=== PATIENT | female | born 1945 ===

== ENCOUNTER 2023-08-04 09:28 | Emergency (ER) | payer OTHER, SELFPAY ==
[2023-08-04 09:32] VITALS: BP 162/68
[2023-08-04] MEDS: NORCO 5/325 1 TABLET PO (10:15)
[2023-08-04 12:00] VITALS: BP 119/75
--- NOTE | 2023-08-04 12:14 | ED.GENMED ---
History of Present Illness
General
Chief Complaint: Fall
Source: patient and family
Time Seen by Provider: 08/04/23 09:46
Travel History
Have you had any contact with someone who has COVID-19?: No
Do you have any symptoms of coronavirus? Fever > 100 degrees, chills, cough, shortness of breath, sore throat, loss of taste or smell, muscle aches, or headache?: No
History of Present Illness
History of Present Illness:
78-year-old female who presents after fall. She fell this morning. She states she tripped on the last step and landed on her left flank on the last step. She complains of left-sided pain. She has urinated and denies any hematuria. No shortness
of breath. She does report pain with breathing deeply. No head injury. No neck pain. No back pain. No anticoagulant
Past History
Past History
ED Past Medical History: HTN and Hypercholesterolemia
Phy Exam
Physical Exam
Physical Exam:
CONSTITUTIONAL Patient alert and oriented to person, place and time. Well-appearing. Vital signs reviewed.
HEAD atraumatic, normocephalic.
EYES eyelids normal to inspection, Extraocular muscles intact, Conjunctiva normal, Sclera normal.
NECK normal range of motion, Trachea midline, no jugular venous distention.
RESPIRATORY CHEST No respiratory distress noted, Chest expansion equal, Bilateral breath sounds clear.
CARDIOVASCULAR regular rate and rhythm, Heart sounds normal.
ABDOMEN abdomen nontender, Bowel sounds normal. No distention.
BACK ecchymosis/bruising noted to the left flank area near ribs 8 through 10. No crepitus
UPPER EXTREMITY range of motion normal, Motor strength normal, no cyanosis, no edema.
LOWER EXTREMITY range of motion normal, Motor strength normal, no cyanosis, no edema.
NEURO Speech normal, No focal motor deficits, Tiffanie coma scale 15, Memory normal, Cranial Nerves intact to screening exam.
SKIN skin warm, dry, and normal in color.
PSYCHIATRIC patient oriented to person place and time, Normal affect.
Course
Orders/Labs/Results
Orders:
Orders
08/04/23 10:08
Hydrocodone 5/APAP 325 [Ideal 5/325] 1 tablet PO NOW STA
Ribs, Left 3 View W/PA Chest CR [CR Ribs-left 3 Vw W/pa Chest] Urgent
Comment:
Reason For Exam: fall
Vital Signs
Initial and Last Documented VS:
Initial Vital Signs
Temp Pulse Resp Pulse Ox
99.2 F 71 16 95
08/04/23 09:29 08/04/23 09:29 08/04/23 09:29 08/04/23 09:29
Last Documented Vital Signs
Temp Pulse Resp BP Pulse Ox
99.2 F 71 16 162/68 95
08/04/23 09:29 08/04/23 09:29 08/04/23 09:29 08/04/23 09:32 08/04/23 09:29
MDM/Problems Addressed
MDM/Problems Addressed:
Rib fractures, fall
*Radiology
Radiology exam reviewed: radiology read reviewed
*Pulse Oximetry
Patient hypoxic: no
*Critical Care Note
Total Time (30-74mins, 75-104mins- exclusive of procedures): Not Applicable
Data Reviewed
Source: patient
Further Testing Considered But Not Given:
Consider chest CT but lungs clear, no pneumothorax by films
Update Note
Update Note:
I do feel she is safe for discharge and outpatient follow-up. Feels better with pain meds. Incentive spirometry, pain control and outpatient follow-up
ED Attending Note
-
Portions of this chart may have been created with voice recognition software.� Occasional wrong word or��sound alike� substitutions may have occurred due to the inherent limitations of voice recognition software.
Discharge Plan
Departure
Patient Disposition: Home (Routine Discharge)
Date of Disposition: 08/04/23
Time of Disposition: 12:15
Patient with high blood pressure during this ER visit?: Yes
Discharge Problem:
Multiple rib fractures
Instructions: Rib fractures in adults, BLOOD PRESSURE
Prescriptions:
New
hydrocodone-acetaminophen 5-325 mg tablet
1 tab PO Q6HPRN PRN (Reason: Pain) Qty: 15 0RF
Referrals:
Devi Espitia DO [Family Provider] -
Activity Restrictions/Additional Instructions:
Please use incentive spirometry 10 times per hour while awake. Return immediately for fevers, worsening pain, difficulty breathing or any other concerns. Please see your doctor in the next 3 to 5 days for follow-up and reevaluation.
Interventions
Interventions:
*ED COVID-19 Vaccine History Last Done: 08/04/23 09:29
== END 2023-08-04 12:45 | disposition home or self-care (01) ==
LOC: EMR 09:28
PROVIDERS: EMERGENCY PHYSICIAN Emergency Medicine; FAMILY PHYSICIAN Family Medicine
DX: S22.42XA Multiple fractures of ribs, left side, initial encounter for closed fracture (principal); W10.9XXA Fall (on) (from) unspecified stairs and steps, initial encounter; I10 Essential (primary) hypertension
CPT/HCPCS: 99283; 71101

== ENCOUNTER 2024-08-11 18:09 | Inpatient (IN) | payer OTHER, SELFPAY ==
[2024-08-11] VITALS (8 sets, daily range): BP systolic 110–149; BP diastolic 53–76; BMI 28.4
[2024-08-11 14:34] LABS: % Basophils 0.4 % (0-2); % Eosinophils 0.1 % (0-6); % Immature Granulocytes 0.4 % (0-0.5); % Lymphocytes 13.1 % (20.5-51.1); % Monocytes 5.9 % (1.7-9.3); % Neutrophils 80.1 % (42.2-75.2); Absolute Basophils 0.1 10^3/uL (0-0.2); Absolute Immature Granulocytes 0.1 10^3/uL (0-0.05); Absolute Lymphocytes 1.8 10^3/uL (1.2-3.4); Absolute Monocytes 0.8 10^3/uL (0.1-0.6); Absolute Neutrophils 10.8 10^3/uL (1.4-6.5); Hematocrit 33.9 % (37.0-47.0); Mean Corp Hgb Conc. 32.4 g/dL (33.0-37.0); Mean Corpuscular Hgb 26.9 pg (27.0-31.0); Mean Corpuscular Volume 82.9 fL (81.0-99.0); Mean Platelet Volume 10.9 fL (7.4-10.4); Nucleated Red Blood Cells % 0 %; Platelet Count 268 10^3/uL (130-400); Red Blood Cell Count 4.09 10^6/uL (4.20-5.40); Red Cell Dist. Width 14.6 % (11.5-14.5); White Blood Cell Count 13.5 10^3/uL (4.8-10.8)
[2024-08-11 14:38] LABS: INR 1.14; PT 14.9 Sec (11.4-14.6)
--- NOTE | 2024-08-11 15:02 | ED.GENMED ---
History of Present Illness
General
Chief Complaint: Chest Pain
Source: patient
Exam Limitations: none
Time Seen by Provider: 08/11/24 14:32
History of Present Illness
History of Present Illness:
79yoF with a history of coronary artery disease s/p CABG x2 in 2022, hypertension, and hyperlipidemia presenting with her daughter for evaluation of shortness of breath. Patient started to have chills last night without any associated fever or body
aches. She was standing this morning and she started to feel lightheaded and clammy. Patient was experience a discomfort in her right chest and felt short of breath. She sat down and symptoms seem to improve but upon standing, she again did not
feel well. Patient has been having exertional dyspnea and right sided chest discomfort throughout the day today. She denies any syncope. EKG on arrival shows atrial fibrillation. She has no history of afib other than in the immediate
postoperative period after her CABG. She currently takes 325mg aspirin daily, no other blood thinners.
Past History
Past History
ED Past Medical History: HTN and Hypercholesterolemia
Phy Exam
General Physical Exam
General Presentation: well appearing and no apparent distress
General age: appears stated age
General Skin: warm and dry
General Habitus: normal
General Mental: alert
ENT Exam
ENT Exam: normocephalic
Cardiovascular Exam
Cardiovascular Exam: no edema and irregularly irregular
Pulmonary Exam
Pulmonary Exam: lungs clear, no respiratory distress, no rales, no crackles, no rhonchi and no wheezing
Neurological Exam
Neurological Exam: alert
Tiffanie Coma Scale
Eye Opening: Spontaneous
Verbal Response: Oriented
Motor Response: Obeys Commands
GCS Total Score: 15
Skin Exam
Skin Exam: normal color and warm/dry
Psychiatric Exam
Psychiatric Exam: normal mood/affect
Scores
Heart Score for Chest Pain Patients
STEMI patient?: No
History: Moderately Suspicious
ECG: Significant ST-Depression
Age: >/= 65 years
Risk Factors: >/= 3 Risk Factors or History of CAD
Troponin: >1 - <3 x Normal Limit
Heart Score for Chest Pain Patients: 8
Heart Score Risk: 72.7 % MACE over next 6 weeks
Course
Orders/Labs/Results
Orders:
Orders
08/11/24 13:57
Electrocardiogram (*1) Urgent
Reason for Study: Chest Pain
EKG- Treatment ONCE
08/11/24 14:20
Complete Blood Count/With Diff Urgent
NT-proBNP Urgent
Comment: ADDON
Prothrombin Time Urgent
Troponin I Urgent
08/11/24 14:33
Add On- LAB Urgent
Tests Added?: TSH, magnesium
08/11/24 14:52
Add On- LAB Urgent
Tests Added?: BNP
Cardiac Monitoring- Treatment ONCE
0.9% Sodium Chloride 500 ml [Nss] 500 ml IV BOLUS
Metoprolol [Lopressor] 5 mg IV NOW STA
08/11/24 14:55
CR Chest - 2 Views Urgent
Comment:
Reason For Exam: SOB
08/11/24 15:06
COVID-19 Antigen Urgent
Source: Nasal Swab
Comprehensive Metabolic Panel Urgent
D-Dimer Urgent
Magnesium Urgent
PTT Urgent
Comment: ADD ON
TSH Urgent
Influenza A+B Rapid Molecular Urgent
SANDRINE Source: Nasal Swab
Specimen Description:
08/11/24 15:42
Potassium Chloride [KCl] 40 meq PO NOW STA
08/11/24 15:52
Heparin 4,000 units IV NOW STA
Nursing to Place Non Medication Order As Directed
Physician Order: PTT 6 hours after initial start of Heparin infusion
Above order entered?: Yes
Venous Doppler Lwr Ext Bilat [US Periph Venous LOWER Ext Toni] Urgent
Comment:
Reason For Exam: elevated D-dimer
08/11/24 15:59
Add On- LAB Urgent
Tests Added?: ptt
08/11/24 16:00
Heparin 95640 Units/250 ml 25,000 units in 250 ml IV PER PROTOCOL
Weight to be used for heparin protocol in kilograms (kg):: 70.3
Protocol:: Cardiac Tx/Acute Coronary
PTT Goal Range to be used:: PTT 73 to 111 seconds
Order type:: Initial
INITIAL Infusion Dose (UNITS/KG/hr) & then follow protocol:: 12 units/kg/hr
Infusion Dose in UNITS/hr & then follow protocol (UNITS/hr):: 850
INFUSION RATE in mL/hr & then follow protocol (mL/hr):: 8.5
PTT less than or equal to 64 seconds:: Increase rate by 200 units/hr (+ 2 mL/hr)
PTT 64.1 to 72.9 seconds:: Increase rate by 100 units/hr (+ 1 mL/hr)
PTT 73 to 111 seconds:: Target Range. No change in rate.
PTT 111.1 to 130.9 seconds:: Decrease rate by 100 units/hr (- 1 mL/hr)
PTT 131 to 199.9 seconds:: HOLD for 1 hr. Then decrease rate by 200 units/hr (- 2 mL/hr)
PTT greater than or equal to 200 seconds:: HOLD for 2 hrs & Notify Provider. Then decrease by 200 units/hr (-
2 mL/hr)
Lab follow-up:: Each change, PTT q6h until 2 consecutive are therapeutic. Then PTT
daily.
08/11/24 16:54
Urinalysis Reflex To Culture Urgent
Date Specimen was Collected: 08/11/24
Time Specimen was Collected: 16:59
08/11/24 17:01
Add On- LAB Stat
Tests Added?: Mg
08/11/24 22:15
PTT Urgent
Abnormal Lab Results
08/11/24 08/11/24
14:20 15:06
WBC 13.5 H 10^3/uL
(4.8-10.8)
RBC 4.09 L 10^6/uL
(4.20-5.40)
Hgb 11.0 L g/dL
(12.0-16.0)
Hct 33.9 L %
(37.0-47.0)
MCH 26.9 L pg
(27.0-31.0)
MCHC 32.4 L g/dL
(33.0-37.0)
RDW 14.6 H %
(11.5-14.5)
MPV 10.9 H fL
(7.4-10.4)
Abs Immat Gran (auto) 0.1 H 10^3/uL
(0-0.05)
Absolute Neuts (auto) 10.8 H 10^3/uL
(1.4-6.5)
Absolute Monos (auto) 0.8 H 10^3/uL
(0.1-0.6)
Neutrophils % 80.1 H %
(42.2-75.2)
Lymphocytes % 13.1 L %
(20.5-51.1)
PT 14.9 H Sec
(11.4-14.6)
D-Dimer 1.04 H ug/mlFEU
(0.00-0.50)
Sodium 131 L mmol/L
(135-145)
Potassium 3.2 L mmol/L
(3.5-5.1)
Chloride 90 L mmol/L
(98-107)
BUN 48 H mg/dl
(7-17)
Creatinine 2.1 H mg/dL
(0.6-1.0)
Glucose 255 H mg/dl
(70-99)
Troponin I 0.113 H* ng/ml
08/11/24 14:20
08/11/24 15:06
Vital Signs
Initial and Last Documented VS:
Initial Vital Signs
Temp Pulse Resp BP Pulse Ox
97.6 F 67 16 117/65 95
08/11/24 14:01 08/11/24 14:01 08/11/24 14:01 08/11/24 14:01 08/11/24 14:01
Last Documented Vital Signs
Temp Pulse Resp BP Pulse Ox
97.6 F 123 21 134/64 94
08/11/24 14:01 08/11/24 16:15 08/11/24 16:15 08/11/24 16:00 08/11/24 16:15
MDM/Problems Addressed
Differential Diagnosis Includes:
79yoF here with exertional dyspnea, R sided chest discomfort since this morning. Also had some lightheadedness/clamminess this morning. Hx of CAD s/p CABG. EKG from triage shows rapid afib with HR of [address] changes in inferolateral
leads. BP stable. Patient is well-appearing on initial exam in no distress. She currently is asymptomatic while sitting on the stretcher. Differential diagnosis includes but is not limited to: Arrhythmia, ACS, PE, electrolyte abnormality, thyroid
dysfunction
Initial ED plan: Check cardiac labs, D-dimer, TSH, magnesium, COVID/flu swab, and chest x-ray. IV fluid bolus. IV metoprolol initially ordered for rate control although heart rate came down to the 80s without intervention.
*EKG
Interpreted by ED Provider?: Yes
EKG Intrepretation Date: 08/11/24
Heart Rate: 135
Rate: tachycardiac
Rhythm: a-fib
Webb: normal axis
Ischemia: non-specific ST changes (inferolateral leads)
*Critical Care Note
Total Time (30-74mins, 75-104mins- exclusive of procedures): Not Applicable
Update Note
Update Note:
Labs reveal a troponin of 0.113. BNP 4700. D-dimer elevated at 1.04. Creatinine is 2.1 with a GFR of 23. Daughter was able to show me her last outpatient lab work from March 2024 and creatinine was 1.55 at that time. Overall low clinical
suspicion for PE. Bilateral venous duplexes were ordered and patient was initiated on a heparin drip. Patient admitted for further evaluation and management.
ED Attending Note
-
Portions of this chart may have been created with voice recognition software.� Occasional wrong word or��sound alike� substitutions may have occurred due to the inherent limitations of voice recognition software.
Discharge Plan
Departure
Patient Disposition: Admit
Date of Disposition: 08/11/24
Time of Disposition: 16:17
Presentation/result/management discussed w/ accepting MD/DO: Hospitalist
Discharge Problem:
New onset atrial fibrillation, Elevated troponin, Acute kidney injury
Prescriptions:
No Action
losartan 50 mg Tablet
50 mg PO DAILY
furosemide [Lasix] 40 mg Tablet
40 mg PO DAILY
atorvastatin [Lipitor] 40 mg Tablet
40 mg PO QPM
aspirin 325 mg Tablet
325 mg PO DAILY
metoprolol succinate [Toprol XL] 50 mg Tablet Extended Release 24 Hr
50 mg PO DAILY
Theragen Tablet
1 tab PO DAILY
amlodipine [Norvasc] 5 mg Tablet
5 mg PO BID
allopurinol 100 mg Tablet
100 mg PO DAILY
ferrous sulfate 325 mg (65 mg iron) Tablet
325 mg PO Q48H
ibuprofen [Advil] 200 mg Tablet
200 mg PO Q6HPRN PRN (Reason: mild pain)
docusate sodium [Colace] 100 mg Capsule
100 mg PO Q48H
metformin 500 mg Tablet Extended Release 24 Hr
1,000 mg PO BID
escitalopram oxalate [Lexapro] 10 mg Tablet
10 mg PO DAILY
ezetimibe [Zetia] 10 mg Tablet
10 mg PO DAILY
Referrals:
Devi Espitia DO [Family Provider] -
Interventions
Interventions:
*Risk Screen - Suicide Last Done: 08/11/24 14:05
*General Assessment Last Done: 08/11/24 14:18
*Neglect/Abuse Screening Last Done: 08/11/24 14:05
*ED COVID-19 Vaccine History Last Done: 08/11/24 14:18
ED- Cardiac Assessment Last Done: 08/11/24 14:18
Discharge Date and Time
Print Language: GUYANESE
[2024-08-11 15:04] LABS: Troponin I 0.113 ng/ml
[2024-08-11] MEDS: NSS 500 IV (15:06)
[2024-08-11 15:20] LABS: NT-proBNP 4700 pg/ml
[2024-08-11 15:35] LABS: D-Dimer 1.04 ug/mlFEU (0.00-0.50)
[2024-08-11 15:40] LABS: ALT (SGPT) 16 U/L (0-35); AST (SGOT) 25 U/L (14-36); Albumin 4.4 g/dl (3.5-5.0); Alkaline Phosphatase 82 U/L (38-126); Blood Urea Nitrogen 48 mg/dl (7-17); COVID-19 Antigen Negative (Negative); Calcium 9.1 mg/dl (8.4-10.2); Carbon Dioxide 24 mmol/L (22-30); Chloride 90 mmol/L (98-107); Estimated Creatinine Clearance 20 ml/min; Glucose 255 mg/dl (70-99); Magnesium 1.6 mg/dl (1.6-2.3); Potassium 3.2 mmol/L (3.5-5.1); Sodium 131 mmol/L (135-145); Total Bilirubin 1.3 mg/dl (0.2-1.3); Total Protein 7.3 g/dl (6.3-8.2); eGFR 23.38
[2024-08-11 16:09] LABS: TSH 1.73 uIU/ml (0.47-4.68)
[2024-08-11] MEDS: KCL 40 MEQ PO (16:14)
[2024-08-11] MEDS: HEPARIN 25000 UNITS/250 ML IV (16:15)
[2024-08-11] MEDS: HEPARIN 4000 UNITS IV (16:15)
[2024-08-11 16:29] LABS: APTT 30.4 Sec (23.4-35.0)
--- NOTE | 2024-08-11 16:33 | W.PN.UPDATE ---
Update Note
Progress Note Update
I personally performed a history and physical exam of the patient and discussed management with the resident. I reviewed the resident's note and agree with the documented findings and plan of care HPI/CC.
79-year-old female who presents with chief complaints of dyspnea on exertion and right-sided chest pain.
134/64, 123, 21, 97.6 �F, 94% RA
Gen: NAD, AAOx3.
Eyes: EOMI, PERRLA, no scleral icterus.
Neck: supple.
CV: irreg/irreg, +S1/S2, no m/r/g.
Resp: CTAB, no rales, wheezes, or rhonchi.
Abd: +BS, soft, NT, ND
Skin: No rashes.
Neuro: CN 2-12 intact, non-focal.
Psych: Normal mood and affect.
Lab Results
08/11/24 08/11/24 08/11/24
14:20 15:06 15:52
WBC 13.5 H
RBC 4.09 L
Hgb 11.0 L
Hct 33.9 L
MCV 82.9
MCH 26.9 L
MCHC 32.4 L
RDW 14.6 H
Plt Count 268
MPV 10.9 H
Abs Immat Gran (auto) 0.1 H
Absolute Neuts (auto) 10.8 H
Absolute Lymphs (auto) 1.8
Absolute Monos (auto) 0.8 H
Absolute Eos (auto) 0.0
Absolute Basos (auto) 0.1
Immature Gran % 0.4
Neutrophils % 80.1 H
Lymphocytes % 13.1 L
Monocytes % 5.9
Eosinophils % 0.1
Basophils % 0.4
Nucleated RBC % 0
PT 14.9 H
INR 1.14
APTT Cancelled
D-Dimer 1.04 H
Sodium Cancelled 131 L
Potassium Cancelled 3.2 L
Chloride Cancelled 90 L
Carbon Dioxide Cancelled 24
BUN Cancelled 48 H
Creatinine Cancelled 2.1 H
Estimated Creat Clear Cancelled 20
eGFR Cancelled 23.38
Glucose Cancelled 255 H
Calcium Cancelled 9.1
Magnesium 1.6
Total Bilirubin Cancelled 1.3
AST Cancelled 25
ALT Cancelled 16
Alkaline Phosphatase Cancelled 82
Troponin I 0.113 H*
Dry-M-Twrasba[place]ja Pept 4700
Total Protein Cancelled 7.3
Albumin Cancelled 4.4
TSH 1.73
SARS-CoV-2 Antigen Negative
CXR: Hyperaeration suggests a component of COPD.
ECG (read by me): afib @ 135, nl axis, no acute ST changes, TWi I, II, V5-V6
Afib with RVR:
-relatively new Dx (had afib in 2022 sergio-CABG)
-5mg IV Lopressor, 500cc NS given in ER
-cont heparin gtt started in the ER
-check echo
-c/s cards
-cont Toprol XL
-aggressive IVFs with TESS
-IV cardizem PRN for now. Rehydrate prior to considering cardizem gtt.
Elevated trop:
-h/o CAD s/p CABG
-ECG with TWi as above
-trend trop
-heparin gtt started in ER, continue
-currently elevated troponin is either due to acute nonischemic myocardial injury (in the setting of TESS) or acute NSTEMI. Will need to trend trop and symptoms to delineate further.
TESS:
-baseline Cr 1.5 in March 2024
-likely prerenal azotemia as well as SEs of ARB/NSAIDs
-hold ARB
-aggressive IVFs
Other problems:
DM2: Hold metformin, check a1c, SSI/accuchecks
Essential HTN: hold Norvasc/Losartan
HLD: cont statin
Hyponatremia, mild
Hypokalemia: 40meq PO K
FULL/heparin gtt
[2024-08-11 17:30] LABS: Urine Albumin Negative (Neg - Trace); Urine Bilirubin Negative (Negative); Urine Character Clear (Clear); Urine Color Yellow; Urine Glucose Negative (Negative); Urine Ketone Negative (Negative); Urine Leukocyte Negative (Negative); Urine Nitrite Negative (Negative); Urine Occult Blood Negative (Negative); Urine Urobilinogen Negative (Neg - 1+)
--- NOTE | 2024-08-11 17:30 | HPS.HSE ---
Family Physician
-
Family Physician: Devi Espitia
Chief Complaint
-
SOB, right-sided chest discomfort, lightheadedness
History of Present Illness
Patient is a 79-year-old female with past medical history of hypertension, HLD, avq-ybhvzdv-bcnwnbifs diabetes type 2, CAD status post CABG 2022, who presented to ED for evaluation of shortness of breath and right-sided chest discomfort. Daughter
is at bedside. History is obtained from both patient and daughter.
Patient had an episode of diarrhea on Saturday night. Was also having chills, however, symptoms resolved without any treatment the following day. Patient was symptom-free until last night when she started having chills and feeling clammy again.
This morning, while in the shower, she experienced right-sided chest comfort as well as shortness of breath and headedness. Mentions pain lasted for almost 30 minutes. Did not radiate. She got out of the shower. Did not take any medications to
help with symptoms and just went to bed to rest. After waking up, she still had exertional shortness of breath and chest discomfort. Mentions discomfort was different to the [place] episode she had in 2022.
Denies any recent travels or surgeries. Denies personal history of blood clots. Denies noticing swelling of legs. Patient is employed and has an active lifestyle.
On arrival in the ED, EKG was obtained which showed A-fib rhythm with RVR. Also, troponin and creatinine were elevated. Mildly hyponatremic and hypokalemic.
Medical History
Past Medical History
Past Medical History: Reports CAD (s/p CABG 2022), HTN, Hypercholesterolemia, NIDDM and Renal Failure
Past Surgical History: Reports Cardiac
Additional Past Surgical History:
CABG
Social History
Tobacco: Former Smoker
Alcohol: Occasional
Drug: None
Employment: Employed
Family History
Family History: Not pertinent
Allergies / Home Medications
Allergies reflects when Allergies were last updated in [email or web address].
Home Medications with original date entered in [email or web address]
Allergy/Medication List:
Allergies
Allergy/AdvReac Type Severity Reaction Status Date / Time
adhesive Allergy Rash Verified 08/04/23 09:31
cephalexin [From Keflex] Allergy Nausea / Verified 08/04/23 09:31
Vomiting
Penicillins Allergy Tongue Verified 08/04/23 09:31
Swelling
Home Medications
allopurinol 100 mg tablet 100 mg PO DAILY 08/11/24
amlodipine 5 mg tablet (Norvasc) 5 mg PO BID 08/11/24
aspirin 325 mg tablet 325 mg PO DAILY 08/11/24
atorvastatin 40 mg tablet (Lipitor) 40 mg PO QPM 08/11/24
docusate sodium 100 mg capsule (Colace) 100 mg PO Q48H 08/11/24
escitalopram oxalate 10 mg tablet (Lexapro) 10 mg PO DAILY 08/11/24
ezetimibe 10 mg tablet (Zetia) 10 mg PO DAILY 08/11/24
ferrous sulfate 325 mg (65 mg iron) tablet 325 mg PO Q48H 08/11/24
furosemide 40 mg tablet (Lasix) 40 mg PO DAILY 08/11/24
ibuprofen 200 mg tablet (Advil) 200 mg PO Q6HPRN PRN mild pain 08/11/24
losartan 50 mg tablet 50 mg PO DAILY 08/11/24
metformin 500 mg tablet,extended release 24 hr 1,000 mg PO BID 08/11/24
metoprolol succinate 50 mg tablet,extended release 24 hr (Toprol XL) 50 mg PO DAILY 08/11/24
therapeutic multivitamin 1 tab PO DAILY 08/11/24
Review of Systems
-
History Source: Patient
A 12 point ROS was completed and negative except as noted: Yes
Respiratory: Denies Trouble Breathing
Cardiac: Denies Chest Pain, Diaphoresis, Palpitations or Syncope
Abdomen/GI: Denies Abdominal Pain, Nausea, Vomiting or Diarrhea
Musculoskeletal: Denies Edema
Neurological: Denies Dizzy or Headache
Physical Exam
Vital Signs
Vital Signs
Temp Pulse Resp BP Pulse Ox
97.6 F 123 21 134/64 94
08/11/24 14:01 08/11/24 16:15 08/11/24 16:15 08/11/24 16:00 08/11/24 16:15
Physical Exam
General: Well Developed, Well Nourished, No Apparent Distress, Comfortable and Conversant
HEENT: NormoCephalic, Anicteric and Moist mucous membranes
Respiratory: Clear and Non Labored Respirations; No Wheezes or Crackles
Cardiac: S1/S2 and Irregular Rhythm; No Bradycardia or Tachycardia
GI: Soft, Non Tender, Non Distended and Normal Bowel Sounds
Musculoskeletal: No Clubbing, No Cyanosis and No Edema
Skin: Warm and Dry; No Rash
Neuro: Awake, Alert, Oriented and AO x 3
Psych: Calm
Laboratory Results
-
08/11/24 14:20
08/11/24 15:06
Laboratory Results
PT 14.9 Sec (11.4-14.6) H 08/11/24 14:20
INR 1.14 08/11/24 14:20
APTT Cancelled 08/11/24 15:52
Total Bilirubin 1.3 mg/dl (0.2-1.3) 08/11/24 15:06
AST 25 U/L (14-36) 08/11/24 15:06
ALT 16 U/L (0-35) 08/11/24 15:06
Alkaline Phosphatase 82 U/L (38-126) 08/11/24 15:06
Troponin I 0.113 ng/ml H* 08/11/24 14:20
Impression/Plan
-
#Afib with RVR:
-Relatively new Dx (had afib in 2022 sergio-CABG, was controlled prior to discharge)
-5mg IV Lopressor and 500cc NS given in ER
-Cont heparin gtt started in the ER
-Check echo
-Consulted cards
-Cont Toprol XL
-IV cardizem PRN for now. Rehydrate prior to considering cardizem gtt.
#Elevated troponin
-CAD s/p CABG 2022-She follows with a sole stitcher hand at [facility].
-likely d/t acute NIMI (in the setting of TESS) or acute NSTEMI.
-Will cont to trend trop to peak
-serial ECG
-heparin gtt started in ER, will continue
-LE US: no evidence of DVT
-CXR: Hyperaeration suggests a component of COPD.
#TESS on CKD
-baseline Cr 1.5 in March 2024 with eGFR 34
-likely prerenal as well as SEs of ARB/NSAIDs
-Hold ARB and Lasix
-Aggressive IVFs
#NIDDM
-Hold metformin
-Check HgbA1C
-SSI low
-Accuchecks
#Essential HTN
-Hold Norvasc and Losartan
-Cont Toprol XL
#HLD
-Continue statin
#Mild Hypovolemic Hyponatremia
- Anticipate to improve with NSS
- Trend BMP
#Hypokalemia
-Repleted with 40meq PO K in ED
DVT prophylaxis
Heparin gtt
CODE STATUS
FULL CODE
[2024-08-11 20:24] LABS: Troponin I 0.094 ng/ml
[2024-08-11 21:45] LABS: Glucose - Point of Care 152 mg/dl (70-99)
[2024-08-11] MEDS: LIPITOR 40 MG PO (21:52)
[2024-08-11 22:27] LABS: APTT 68.7 Sec (23.4-35.0)
[2024-08-11 22:38] LABS: Troponin I 0.093 ng/ml
[2024-08-11] MEDS: MELATONIN 3 MG PO (23:10)
[2024-08-12 00:57] VITALS: BMI 26.5
[2024-08-12 06:00] VITALS: BMI 25.6
[2024-08-12 06:03] LABS: Hematocrit 25.4 % (37.0-47.0); Hemoglobin 8.8 g/dL (12.0-16.0); Mean Corp Hgb Conc. 34.6 g/dL (33.0-37.0); Mean Corpuscular Hgb 27.5 pg (27.0-31.0); Mean Corpuscular Volume 79.4 fL (81.0-99.0); Mean Platelet Volume 10.7 fL (7.4-10.4); Platelet Count 225 10^3/uL (130-400); Red Cell Dist. Width 14.4 % (11.5-14.5); White Blood Cell Count 10.5 10^3/uL (4.8-10.8)
[2024-08-12 06:05] LABS: APTT 76.9 Sec (23.4-35.0)
[2024-08-12 06:28] LABS: ALT (SGPT) 13 U/L (0-35); AST (SGOT) 22 U/L (14-36); Albumin 3.5 g/dl (3.5-5.0); Alkaline Phosphatase 81 U/L (38-126); Blood Urea Nitrogen 46 mg/dl (7-17); Calcium 8.9 mg/dl (8.4-10.2); Carbon Dioxide 28 mmol/L (22-30); Chloride 95 mmol/L (98-107); Estimated Creatinine Clearance 20 ml/min; Glucose 158 mg/dl (70-99); Sodium 135 mmol/L (135-145); Total Protein 6.3 g/dl (6.3-8.2); eGFR 26.36
--- NOTE | 2024-08-12 07:27 | PTCARENOTE ---
Patient received from ED on stretcher. Patient on Heparin gtt at 8.5 ml/hr. Heart rate controlled, A.fib. rhythm on monitor. Patient remains asymptomatic. Call dodge with in reach. POC reviewed with patient. Care ongoing, Will continue to monitor.
[2024-08-12 07:41] VITALS: BP 116/56
--- NOTE | 2024-08-12 07:44 | W.PN.HOSP.TC ---
Today's Communication/Plan
-
Echo
Cardiology consult
Replete potassium
Fluid therapy
Trend BMP, I/O, daily weights
Assessment / Plan
Assessment / Plan
Patient is a 79-year-old female with past medical history of hypertension, HLD, moi-htmdkxs-fwvrhzfgm diabetes type 2, CAD status post CABG 2022, who presented to ED for evaluation of shortness of breath and right-sided chest discomfort.
#Afib with RVR:
-Relatively new Dx (had afib in 2022 sergio-CABG, was controlled prior to discharge)
-In and out of A-fib overnight. NSR this a.m.
-Cont heparin gtt for now-can transition to Eliquis later in the day
-Consulted cardiology
-Echo to be done this a.m.
-Continue Toprol XL
-IV cardizem PRN
#Elevated troponin
-CAD s/p CABG 2022-She follows with a inspector publications at [facility].
-likely d/t acute NIMI (in the setting of TESS) or acute NSTEMI.
-Will cont to trend troponin to peak
-serial ECG
-Cont heparin gtt
-LE US: no evidence of DVT
-CXR: Hyperaeration suggests a component of COPD (patient is former smoker)
#TESS on CKD
-Downtrending
-baseline Cr 1.5 in March 2024 with eGFR 34
-likely prerenal as well as SEs of ARB/NSAIDs
-Continue to hold ARB and Lasix
-IVF therapy with normal saline
#NIDDM
-Hold metformin
-Check HgbA1C
-SSI low
-Accuchecks
#Essential HTN
-Hold Norvasc and Losartan
-Cont Toprol XL
#HLD
-Continue statin
#Mild Hypovolemic Hyponatremia
- Resolved
- Trend BMP
#Hypokalemia
-Repleted with 40meq PO K
DVT prophylaxis
Heparin gtt
CODE STATUS
FULL CODE
Anticipated Discharge: Within 24 hours
Subjective/Interval History
-
Date of Service: August 12, 2024
Denies any CP, SOB or lightheadedness.
Objective Data
-
Labs:
Laboratory Results
08/11/24 08/12/24 08/12/24
22:05 05:24 11:30
WBC 10.5
Hgb 8.8 L
Hct 25.4 L
Plt Count 225
APTT 68.7 H 76.9 H Pending
Sodium 135
Potassium 3.0 L
Chloride 95 L
Carbon Dioxide 28
BUN 46 H
Creatinine 1.9 H
Glucose 158 H
Calcium 8.9
Total Bilirubin 1.0
AST 22
ALT 13
Alkaline Phosphatase 81
Vital Signs:
Vital Signs
Temp Pulse Resp BP Pulse Ox
97.9 F 65 16 116/56 97
08/12/24 07:41 08/12/24 07:41 08/12/24 07:41 08/12/24 07:41 08/12/24 07:41
I&O
08/11/24 08/12/24 08/13/24
06:59 06:59 06:59
Intake Total 480 / 480
Balance 480 / 480
Review of Systems
-
History Source: Patient
All other systems: Reviewed and negative
Physical Exam
-
General: Well Developed and No Apparent Distress
HEENT: Normocephalic, Atraumatic and Moist Mucous Membranes
Respiratory: Clear to Auscultation
Cardiac: S1/S2; Negative Murmur, Rub or Gallop
GI: Soft, Nontender, Nondistended and Normal Bowel Sounds
Musculoskeletal: No Clubbing, No Cyanosis and No Edema
Neuro: Awake, Alert, Oriented, AO x 3 and Slurred Speech
Psych: Calm
[2024-08-12 08:31] LABS: Glycohemoglobin (HgbA1c) 8.7 % (4.0-5.6)
[2024-08-12] MEDS: ASPIRIN 325 MG PO (08:58)
[2024-08-12] MEDS: THERAGRAN 1 TABLET PO (08:58)
[2024-08-12] MEDS: ZYLOPRIM 100 MG PO (08:58)
[2024-08-12] MEDS: KCL 40 MEQ PO ×2 (08:58→12:47)
[2024-08-12] MEDS: NOVOLOG FLEXPEN-LOW RESISTANCE 2 UNITS SC ×2 (08:59→12:45)
[2024-08-12] MEDS: COLACE 100 MG PO (08:59)
[2024-08-12] MEDS: FEOSOL 325 MG PO (08:59)
[2024-08-12] MEDS: LEXAPRO 10 MG PO (08:59)
[2024-08-12] MEDS: TOPROL XL 50 MG PO ×2 (08:59→21:27)
[2024-08-12] MEDS: ZETIA 10 MG PO (08:59)
[2024-08-12 09:03] LABS: Glucose - Point of Care 214 mg/dl (70-99)
--- NOTE | 2024-08-12 09:45 | PTOTSP ---
Chart reviewed, spoke with nurse. Therapist spoke with the patient, who reports being independent and has had no changes in her strength or balance since admission. Patient is agreeable to PT signing off and is aware our services are available if
needed. Will sign off at this time.
--- NOTE | 2024-08-12 10:09 | W.PN.UPDATE ---
Update Note
Progress Note Update
I personally performed a history and physical exam of the patient and discussed management with the resident. I reviewed the resident's note and agree with the documented findings and plan of care HPI/CC.
Gen: NAD, AAOx3.
Eyes: EOMI, PERRLA, no scleral icterus.
Neck: supple.
CV: remains irreg/irreg, +S1/S2, no m/r/g.
Resp: remains CTAB, no rales, wheezes, or rhonchi.
Skin: No rashes. No edema.
Neuro: CN 2-12 intact, non-focal.
Psych: Normal mood and affect.
CXR: Hyperaeration suggests a component of COPD.
ECG (read by me): afib @ 135, nl axis, no acute ST changes, TWi I, II, V5-V6
Echo: EF 55-60%. No RWMA. Small PFO. No change compared to prior echocardiogram in 2021.
Afib with RVR:
-relatively new Dx (had afib in 2022 sergio-CABG)
-5mg IV Lopressor, 500cc NS given in ER
-cont heparin gtt
-echo above
-c/s cards
-cont Toprol XL
-aggressive IVFs with TESS
Elevated trop:
-h/o CAD s/p CABG
-ECG with TWi as above
-currently on heparin gtt
-trops minimally elevated and flat
-elevated troponin is acute nonischemic myocardial injury (in the setting of TESS)
TESS:
-baseline Cr 1.5 in March 2024
-likely prerenal azotemia as well as SEs of ARB/NSAIDs
-holding ARB
-cont IVFs
Other problems:
Hypokalemia: PO K
DM2: a1c 8.7%, Holding metformin, SSI/accuchecks
Essential HTN: hold Norvasc/Losartan
HLD: cont statin
Hyponatremia, mild
FULL/heparin gtt
[2024-08-12] MEDS: MAGNESIUM SULFATE 50 IV (10:39)
[2024-08-12] MEDS: NSS 1000 IV (10:39)
[2024-08-12 11:34] VITALS: BP 117/87
[2024-08-12 11:52] LABS: Glucose - Point of Care 219 mg/dl (70-99)
[2024-08-12 11:55] LABS: APTT 62.7 Sec (23.4-35.0)
--- NOTE | 2024-08-12 12:14 | CON.CAR ---
Addendum entered and electronically signed by Ko Landin MD 08/12/24 16:29:
Stable cardiac status
We will sign off, please recall as needed
Addendum entered and electronically signed by Ko Landin MD 08/12/24 16:27:
I saw and examined the patient.
The Sign Shop Supervisor's note was reviewed and I agree with the note.
Comment: Briefly, 79-year-old woman with past medical history of CAD status post CABG complicated by postop A-fib who presented with chest discomfort and was found to be in atrial fibrillation with rapid ventricular response.
Patient spontaneously converted and is currently maintaining sinus rhythm.
Echo here with preserved LV function and no high-grade valve disease
Plan to increase home Toprol as rates were rapid in A-fib. Will need to monitor for bradycardia. Patient is wearing an Apple Watch and we discussed monitoring heart rate going forward.
Start Eliquis
Recommend stopping aspirin
Tells me she is already scheduled to see her outpatient corporation pilot next week and they can discuss additional medication titrations at that time
Original Note:
Consultation
Consultation Request
Date/Time Consultation Requested: 08/11/24 at 1723
Date/Time Consultation Performed: 08/12/24 at 1144
Requesting Provider: Dr. Bahena
Performing Provider: Dr. Landin
Reason for Consultation: Afib, elevated Troponin
Medical History
-
History of Present Illness:
Patient came to ER yesterday with symptoms of chills and right-sided chest pressure and was admitted with recurrence of A-fib with RVR. Patient previously followed with [facility] cardiology, but when she was found to have CAD she started
following with a corporation pilot down at [place] and eventually had CABG 06/2022. Patient reports she had postop A-fib that was self-limited and she was not started on OAC. No documented recurrence of A-fib. Patient is due to see her primary
corporation pilot next week and last saw him a year ago. She came in from work Saturday night with chills, but no fever. While getting ready for work yesterday she felt uneasy and had a pressure on the right side of her chest and came to ER. Patient
was found to be in A-fib with RVR. Patient converted spontaneously to sinus rhythm overnight. Patient was started on a heparin drip. This is her first documented recurrence of A-fib since CABG. She remains in SR now and her symptoms have
improved. Her right sided chest pressure is completely different from her ACS symptoms back in 2022 which was a left-sided pain.
PMH:
Paroxysmal Afib
seen at time of CABG 06/2022, first documented recurrence
CAD s/p CABG at [place] 06/2022
Hyperlipidemia
HTN
DM 2
TESS
Past Medical History
Past Medical History: Other (in HPI)
Past Surgical History: Cardiac (CABG 2022)
Social History
Tobacco: Former Smoker
Alcohol: Occasional
Drug: None
Personal:
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
Family History
Family History: CAD
Allergies / Home Medications
Allergy/AdvReac Type Severity Reaction Status Date / Time
adhesive Allergy Rash Verified 08/04/23 09:31
cephalexin [From Keflex] Allergy Nausea / Verified 08/04/23 09:31
Vomiting
Penicillins Allergy Tongue Verified 08/04/23 09:31
Swelling
�Medication �Instructions �Recorded �Confirmed �Type
allopurinol 100 mg tablet 100 mg PO DAILY 08/11/24 08/11/24 History
amlodipine 5 mg tablet (Norvasc) 5 mg PO BID HYPERTENSION 08/11/24 08/11/24 History
aspirin 325 mg tablet 325 mg PO DAILY 08/11/24 08/11/24 History
atorvastatin 40 mg tablet (Lipitor) 40 mg PO QPM CHOLESTEROL 08/11/24 08/11/24 History
docusate sodium 100 mg capsule 100 mg PO Q48H Constipation 08/11/24 08/11/24 History
(Colace)
escitalopram oxalate 10 mg tablet 10 mg PO DAILY Mental 08/11/24 08/11/24 History
(Lexapro) Health/Anxiety
ezetimibe 10 mg tablet (Zetia) 10 mg PO DAILY CHOLESTEROL 08/11/24 08/11/24 History
ferrous sulfate 325 mg (65 mg 325 mg PO Q48H Supplement 08/11/24 08/11/24 History
iron) tablet
furosemide 40 mg tablet (Lasix) 40 mg PO DAILY HYPERTENSION 08/11/24 08/11/24 History
ibuprofen 200 mg tablet (Advil) 200 mg PO Q6HPRN PRN mild pain 08/11/24 08/11/24 History
losartan 50 mg tablet 50 mg PO DAILY HYPERTENSION 08/11/24 08/11/24 History
metformin 500 mg tablet,extended 1,000 mg PO BID Diabetes 08/11/24 08/11/24 History
release 24 hr
metoprolol succinate 50 mg 50 mg PO DAILY HYPERTENSION 08/11/24 08/11/24 History
tablet,extended release 24 hr
(Toprol XL)
therapeutic multivitamin 1 tab PO DAILY Supplement 08/11/24 08/11/24 History
Review of Systems
-
History Source: Patient and Family (daughterAnais, by phone)
All other systems: Negative unless noted
Physical Exam
Vital Signs
Temp Pulse Resp BP Pulse Ox
97.8 F 60 16 117/87 95
08/12/24 11:34 08/12/24 11:34 08/12/24 11:34 08/12/24 11:34 08/12/24 11:34
GEN: NAD. AAOx3
HEENT: EOMI, MMM, wearing glasses
LUNGS: RA. Clear anterolaterally without wheeze
CV: SR on tele. Reg, S1/S2, no murmur
ABD: soft, BS+, NT, ND
EXT: No clubbing, cyanosis, lesions or edema B/L
NEURO: Gross non-focal
SKIN: Warm, dry and pink. No rash
Lab Results
08/12/24 05:24
08/12/24 05:24
Troponin I 0.093 ng/ml H* 08/11/24 22:05
Qxw-P-Jgoprafwjdb Pept 4700 pg/ml 08/11/24 14:20
Impression / Plan
-
PCP: Dr. Espitia
Cardiology: Dr. Ariel Hernandez at [place]
Impression:
Admitted with chills, chest pressure and Afib 08/11/24
Chills without fever
Chest pressure
Elevated Troponin
Afib with RVR
Paroxysmal Afib
seen at time of CABG 06/2022, first documented recurrence
CAD s/p CABG at [place] 06/2022
Hyperlipidemia
HTN
DM 2
TESS
Echo 08/12/2024: EF 55 to 60% with normal biventricular size and systolic function without WMA, no significant valvular disease, small PFO
Plan:
-Patient came to ER yesterday with symptoms of chills and right-sided chest pressure and was admitted with recurrence of A-fib with RVR. Patient previously followed with [facility] cardiology, but when she was found to have CAD she
started following with a corporation pilot down at [place] and eventually had CABG 06/2022. Patient reports she had postop A-fib that was self-limited and she was not started on OAC. No documented recurrence of A-fib. Patient is due to see her primary
corporation pilot next week and last saw him a year ago. She came in from work Saturday night with chills, but no fever. While getting ready for work yesterday she felt uneasy and had a pressure on the right side of her chest and came to ER. Patient
was found to be in A-fib with RVR. Patient converted spontaneously to sinus rhythm overnight. Patient was started on a heparin drip. This is her first documented recurrence of A-fib since CABG. She remains in SR now and her symptoms have
improved. Her right sided chest pressure is completely different from her ACS symptoms back in 2022 which was a left-sided pain.
-ECG reviewed by me shows A-fib with RVR. Telemetry reviewed by me shows SR
-Talked with patient and her daughter, Anais, by phone for 20 minutes reviewing hospitalization thus far. We spent time reviewing lab results, echo results and management thus far.
-This is the patient's first documented recurrence of A-fib since CABG 06/2022. We discussed stroke risk and patient is agreeable to start Eliquis 2.5 mg BID (age 79, wt 67.49 kg, Cre 1.9). We talked about watching for signs of bleeding
-Patient should stop her aspirin 325 mg daily
-Will increase Toprol XL to 50 mg BID to help with rate control
-Initial troponin was 0.113 and then trended down thereafter. Patient's right sided chest pressure is completely different from her angina at the time of ACS/CABG 06/2022. Suspect that this is a nonischemic myocardial injury troponin elevation
given normal echo findings, low-level troponin, rapid A-fib and that her symptoms are different than prior ACS.
-Patient has not had recurrent ischemic evaluation since CABG 06/2022 and is already scheduled to see her primary corporation pilot next week who can coordinate outpatient stress test
-Patient is stable for d/c from a cardiac standpoint
-HgbA1c is 8.7%
--- NOTE | 2024-08-12 14:38 | CM ---
Patient seen at bedside. Patient stated that she lives with her daughter, the daughter's fiance and granddaughter. Patient home is a 2 story home and she does not have any DME. 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
return to work. Patient stated that her PCP is Jakob joyce in [place], Patient PCP is Dr. Hang Andrew and she stated that she is independent of all adl's and iadl's. Patient plan is for possible discharge later today. CM will continue to follow
for discharge planning needs.
Plan; home with no needs anticipated.
[2024-08-12 15:59] VITALS: BP 106/53
[2024-08-12 16:59] LABS: Glucose - Point of Care 143 mg/dl (70-99)
[2024-08-12] MEDS: NOVOLOG FLEXPEN-LOW RESISTANCE SC (17:23)
[2024-08-12] MEDS: LIPITOR 40 MG PO (17:32)
[2024-08-12 19:20] VITALS: BP 102/55
[2024-08-12] MEDS: ELIQUIS 2.5 MG PO (21:26)
[2024-08-12 21:32] LABS: Glucose - Point of Care 237 mg/dl (70-99)
[2024-08-12] MEDS: MELATONIN 3 MG PO (21:32)
[2024-08-12 23:20] VITALS: BP 107/88
[2024-08-12] MEDS: NSS IV (23:28)
[2024-08-13] MEDS: NSS 1000 IV (01:24)
[2024-08-13 03:15] VITALS: BP 115/55
[2024-08-13 06:00] VITALS: BMI 25.7
[2024-08-13 06:58] LABS: Blood Urea Nitrogen 41 mg/dl (7-17); Calcium 9.6 mg/dl (8.4-10.2); Carbon Dioxide 26 mmol/L (22-30); Chloride 99 mmol/L (98-107); Estimated Creatinine Clearance 22 ml/min; Glucose 170 mg/dl (70-99); Potassium 3.8 mmol/L (3.5-5.1); Sodium 138 mmol/L (135-145); eGFR 28.13
[2024-08-13 07:20] VITALS: BP 134/47
[2024-08-13 08:03] LABS: Glucose - Point of Care 170 mg/dl (70-99)
--- NOTE | 2024-08-13 09:00 | W.PN.UPDATE ---
Update Note
Progress Note Update
I saw and evaluated the patient. I reviewed the resident�s note and agree with findings and plan as documented in the resident�s note.
No new complaints.
Gen: remains NAD, AAOx3.
Eyes: EOMI, PERRLA, no scleral icterus.
Neck: supple.
CV: eloise, reg rhythm, +S1/S2, no m/r/g.
Resp: continues to remain CTAB, no rales, wheezes, or rhonchi.
Skin: No rashes. No edema.
Neuro: CN 2-12 intact, non-focal.
Psych: Normal mood and affect.
CXR: Hyperaeration suggests a component of COPD.
ECG (read by me): afib @ 135, nl axis, no acute ST changes, TWi I, II, V5-V6
Echo: EF 55-60%. No RWMA. Small PFO. No change compared to prior echocardiogram in 2021.
Afib with RVR:
-relatively new Dx (had afib in 2022 sergio-CABG)
-5mg IV Lopressor, 500cc NS given in ER
-was on heparin gtt now transitioned to Eliquis
-echo above
-c/s cards
-cont Toprol XL
-s/p IVFs with TESS
Elevated trop:
-h/o CAD s/p CABG
-ECG with TWi as above
-trops minimally elevated and flat
-elevated troponin is acute nonischemic myocardial injury (in the setting of TESS)
TESS:
-baseline Cr 1.5 in March 2024
-likely prerenal azotemia as well as SEs of ARB/NSAIDs
-holding ARB
-s/p IVFs
Other problems:
Hypokalemia: PO K
DM2: a1c 8.7%, SSI/accuchecks. Metformin held and cannot be restarted with current Cr. Start Glipizide 2.5mg daily. Diabetic diet.
Essential HTN: holding Norvasc/Losartan
HLD: cont statin
Hyponatremia, mild
FULL/Eliquis
Total time spent on d/c = 33 min. This included today's physical exam, progress note, review of laboratory and diagnostic data, preparation of discharge documents and prescriptions, and discussions about the pt's hospital course and discharge plan
with the patient and other medical affairs leader involved in the patient's care.
--- NOTE | 2024-08-13 09:01 | W.PN.HOSP.TC ---
Today's Communication/Plan
-
Discharge to home
Assessment / Plan
Assessment / Plan
Patient is a 79-year-old female with past medical history of hypertension, HLD, wyu-rololoe-uwucumabt diabetes type 2, CAD status post CABG 2022, who presented to ED for evaluation of shortness of breath and right-sided chest discomfort.
#Afib with RVR:
-Relatively new Dx (had afib in 2022 sergio-CABG, was controlled prior to discharge)
-In and out of A-fib overnight. NSR this a.m.
-Consulted cardiology- switched heparin gtt to Eliquis 2.5 BID
-Echo done-LVEF 55-60%
-Toprol XL 50 BID
-IV cardizem PRN
#Elevated troponin
-CAD s/p CABG 2022-She follows with a rn medical inpatient services at [facility].
-likely d/t acute NIMI (in the setting of TESS) or acute NSTEMI.
-troponin peaked
-LE US: no evidence of DVT
-CXR: Hyperaeration suggests a component of COPD (patient is former smoker)
#TESS on CKD
-Downtrending
-baseline Cr 1.5 in March 2024 with eGFR 34
-likely prerenal as well as SEs of ARB/NSAIDs
-Continue to hold ARB and Lasix afer discharge
-IVF therapy with normal saline
#NIDDM
-Hold metformin
-Check HgbA1C
-SSI low
-Accuchecks
#Essential HTN
-Hold Norvasc and Losartan
-Cont Toprol XL
#HLD
-Continue statin
#Mild Hypovolemic Hyponatremia
- Resolved
- Trend BMP
#Hypokalemia
-Repleted with 40meq PO K
DVT prophylaxis
Heparin gtt
CODE STATUS
FULL CODE
Anticipated Discharge: Today
Subjective/Interval History
-
Date of Service: August 13, 2024
Does not offer any complaints.
Objective Data
-
Labs:
Laboratory Results
08/13/24
05:30
Sodium 138
Potassium 3.8 D
Chloride 99
Carbon Dioxide 26
BUN 41 H
Creatinine 1.8 H
Glucose 170 H
Calcium 9.6
Vital Signs:
Vital Signs
Temp Pulse Resp BP Pulse Ox
98.1 F 54 18 134/47 92
08/13/24 07:20 08/13/24 07:20 08/13/24 07:20 08/13/24 07:20 08/13/24 07:20
I&O
08/12/24 08/13/24 08/14/24
06:59 06:59 06:59
Intake Total 0 / 0
Balance 1680 / 1680
Review of Systems
-
History Source: Patient
All other systems: Reviewed and negative
Physical Exam
-
General: Well Developed and No Apparent Distress
HEENT: Normocephalic, Atraumatic and Moist Mucous Membranes
Respiratory: Clear to Auscultation
Cardiac: S1/S2; Negative Murmur, Rub or Gallop
GI: Soft, Nontender, Nondistended and Normal Bowel Sounds
Musculoskeletal: No Clubbing, No Cyanosis and No Edema
Neuro: Awake, Alert, Oriented, AO x 3 and Slurred Speech
Psych: Calm
[2024-08-13] MEDS: GLUCOTROL 2.5 MG PO (09:48)
[2024-08-13] MEDS: ZETIA 10 MG PO (09:50)
[2024-08-13] MEDS: TOPROL XL PO (09:55)
[2024-08-13] MEDS: ELIQUIS 2.5 MG PO (09:56)
[2024-08-13] MEDS: ZYLOPRIM 100 MG PO (09:57)
[2024-08-13] MEDS: LEXAPRO 10 MG PO (09:58)
[2024-08-13] MEDS: THERAGRAN 1 TABLET PO (09:59)
[2024-08-13] MEDS: NOVOLOG FLEXPEN-LOW RESISTANCE 1 UNITS SC (10:00)
[2024-08-13] MEDS: NSS IV (10:07)
--- NOTE | 2024-08-13 10:23 | CM ---
Patient seen at bedside. IMM competed 08/12/24 and patient states she has a ride home and no concerns. CM will continue to follow for discharge planning needs.
Plan; home with no needs at this time
[2024-08-13 11:36] VITALS: BP 148/69
--- NOTE | 2024-08-13 15:35 | W.DCSUMMARY ---
Discharge Summary
Discharge Data
Date of Admission: 08/11/24
Date of Discharge: 08/13/24
-
Pending Results: No
Hospital Course
Patient is a 79-year-old female with past medical history of hypertension, HLD, myv-koyprry-oitxldusp diabetes type 2, CAD status post CABG (2022), who presented to ED for evaluation of shortness of breath and right-sided chest discomfort. Patient
started experiencing right-sided chest discomfort as well as shortness of breath and lightheadedness while taking a shower. She went to bed to rest and after waking up, she still had some shortness of breath and chest discomfort with exertion. She
denied any recent travels or surgeries. Denied personal or family history of blood clots. Patient is employed and has an active lifestyle.
On arrival in the ED, EKG was obtained which showed A-fib rhythm with RVR. Troponin and creatinine were elevated as well as mild hyponatremia and hypokalemia. 5mg IV Lopressor and 500cc NS were given in ER. Heparin drip was started and she was
admitted for further evaluation. LE US was done which did not show evidence of DVT.
Problem list:
1. Afib with RVR
Patient reported previous episode of postop A-fib after her CABG procedure that was self-limited and she was not started on OAC. This was her first documented recurrence of A-fib since CABG.
Heparin drip and Toprol-XL were continued. Echo was ordered and cardiology was consulted. Echo showed preserved LV function (EF 55 to 60%) with normal biventricular size and systolic function without WMA and no high-grade valve disease with small
PFO. Patient converted spontaneously to sinus rhythm overnight and remained in sinus rhythm the following day. Cardiology performed stroke risk assessment and recommended starting Eliquis 2.5 mg BID and increasing Toprol XL to 50 mg BID to help with
rate control upon discharge.
2. Elevated troponin
Initial troponin was 0.113 and was trended to peak. Patient reported right sided chest pressure was completely different from her angina at the time of ACS/CABG 06/2022. Suspect that elevated troponin was likely d/t nonischemic myocardial injury
given normal echo findings and low-level troponin.
3. TESS on CKD
Previous records showed baseline creatinine of 1.5 in March 2024. Lisinopril, Lasix, and metformin were held. Creatinine improved during stay with IV fluid therapy.
4. Hypokalemia
Potassium was repleted as needed and K level returned to baseline prior to discharge.
5. Rest of chronic conditions were managed as prior to discharge.
New changes in medication:
Eliquis 2.5 mg BID
Toprol XL 50 mg BID
Glipizide 2.5 mg
Stop aspirin 325 mg daily
Stop Lasix
Stop Losartan
Stop Norvasc until seen by your wire frame dipper next week
Stop metformin
Do not take any NSAIDs including ibuprofen while on Eliquis
We recommend attending your appointment with your primary wire frame dipper at [facility] (Ariel Hernandez) scheduled for next week.
Discharge Plan
-
Patient Disposition: Home (Routine Discharge)
Discharge Diagnosis/Procedures: Paroxysmal atrial fibrillation with spontaneous conversion to sinus rhythm, Troponin elevation d/t non-ischemic myocardial injury (peak Troponin I ES assay was 0.113)
Condition: Good
Diet: Low Fat, Low Sodium and Diabetic, Carb Controlled
Additional Diets: fluid restrict to 1400cc/day
Activity: As tolerated
Driving Restrictions: As prior to admission
Bathing Restrictions: None
Specialty Instructions: Weigh Daily- Call MD for wt gain/loss 3 lbs overnight/5 lbs in 1 week
Referrals:
Ariel Hernandez MD [Non-Admitting Privileges] - in one to two weeks (Follow up with your wire frame dipper as scheduled next week.)
Devi Espitia DO [Family Provider] -
Additional Discharge Medication Instructions: -STOP taking aspirin
-Start taking Eliquis 2.5 mg twice a day
-Increase your dose of Toprol XL (metoprolol succinate) to 50 mg twice a day
-STOP losartan and Lasix
-Scheduled to see her primary wire frame dipper at [facility] next week
Prescriptions:
New
metoprolol succinate [Toprol XL] 50 mg tablet extended release 24 hr
50 mg PO BID Qty: 60 0RF
Eliquis 2.5 mg tablet
2.5 mg PO BID Qty: 60 11RF
glipizide 5 mg Tablet
2.5 mg PO DAILY Qty: 30 0RF
Continued
atorvastatin [Lipitor] 40 mg Tablet
40 mg PO QPM
therapeutic multivitamin Tablet
1 tab PO DAILY
allopurinol 100 mg Tablet
100 mg PO DAILY
ferrous sulfate 325 mg (65 mg iron) Tablet
325 mg PO Q48H
docusate sodium [Colace] 100 mg Capsule
100 mg PO Q48H
escitalopram oxalate [Lexapro] 10 mg Tablet
10 mg PO DAILY
ezetimibe [Zetia] 10 mg Tablet
10 mg PO DAILY
Discontinued
losartan 50 mg Tablet
50 mg PO DAILY
furosemide [Lasix] 40 mg Tablet
40 mg PO DAILY
aspirin 325 mg Tablet
325 mg PO DAILY
metoprolol succinate [Toprol XL] 50 mg Tablet Extended Release 24 Hr
50 mg PO DAILY
amlodipine [Norvasc] 5 mg Tablet
5 mg PO BID
ibuprofen [Advil] 200 mg Tablet
200 mg PO Q6HPRN PRN (Reason: mild pain)
metformin 500 mg Tablet Extended Release 24 Hr
1,000 mg PO BID
Discharge Orders:
Discharge Patient (As Directed); Ordered 08/13/24
Ordered By: Delio Bahena
Discharge Date and Time
Discharge Date/Time: 08/13/24 11:39
Print Language: [place]
== END 2024-08-13 11:39 | disposition home or self-care (01) | DRG 683 ==
LOC: 3 WEST ACU 18:09
PROVIDERS: Emergency Medicine; Physician Assistant; ADMITTING PHYSICIAN Internal Medicine; EMERGENCY PHYSICIAN Emergency Medicine; FAMILY PHYSICIAN Family Medicine; OTHER PHYSICIAN Internal Medicine Cardiovascular Disease
DX: N17.9 Acute kidney failure, unspecified (principal); E87.1 Hypo-osmolality and hyponatremia; Q21.12 Patent foramen ovale; I5A Non-ischemic myocardial injury (non-traumatic); I48.0 Paroxysmal atrial fibrillation; Z95.1 Presence of aortocoronary bypass graft; N18.9 Chronic kidney disease, unspecified; E11.22 Type 2 diabetes mellitus with diabetic chronic kidney disease; I13.10 Hypertensive heart and chronic kidney disease without heart failure, with stage 1 through stage 4 chronic kidney disease, or unspecified chronic kidney disease; E87.6 Hypokalemia; Z87.891 Personal history of nicotine dependence; Z88.1 Allergy status to other antibiotic agents; Z88.0 Allergy status to penicillin; Z79.82 Long term (current) use of aspirin; Z79.84 Long term (current) use of oral hypoglycemic drugs; E78.00 Pure hypercholesterolemia, unspecified; E86.1 Hypovolemia; I25.10 Atherosclerotic heart disease of native coronary artery without angina pectoris; Z79.899 Other long term (current) drug therapy; K59.00 Constipation, unspecified; F41.9 Anxiety disorder, unspecified; Z11.52 Encounter for screening for COVID-19
CPT/HCPCS: 71046; 80048; 80053; 81003; 82962; 83036; 83735; 83880; 84443; 84484; 85025; 85027; 85379; 85610; 85730; 87502; 87811; 93005; 93306; 93970; 96361; 96374; 96376; 99285

== ENCOUNTER → 2024-09-28 13:26 | Outpatient (REF) | payer OTHER, SELFPAY | LOC: RAD 13:26 | PROVIDERS: ATTENDING PHYSICIAN Family Medicine | DX: I73.9 Peripheral vascular disease, unspecified (principal) | CPT/HCPCS: 93922; 93925 ==